=== PATIENT | female | born 1955 | race Caucasian/White ===

== ENCOUNTER 2017-12-06 16:38 | Observation (INO) | payer BC ==
[~2017-12-06] VITALS: Ht 170.2 cm; Wt 96.7 kg
[~2017-12-06 16:38] MED LIST: DTRSR10 PO
--- NOTE | 2017-12-06 16:46 | EMERGENCY ROOM VISIT NOTE ---
History Report prepared by Law: Rajat Phealn Under the Supervision of: Dr. Jr Villafana M.D. First contact with patient: 16:44 Chief Complaint: CHEST PAIN Stated Complaint: CHEST PAIN, CAN'T MOVE L ARM History of Present Illness The patient is a 62 year old female who presents to the Emergency Room with complaints of squeezing, waxing and waning left sided chest pain beginning 25 minutes ago. She rates the severity of the squeezing sensation at an 8/10. The patient notes that the squeezing sensation recurs every 2 minutes and lasts for roughly 5 seconds at a time. She reports that on the way to the ED, the pain developed into a constant aching sensation. The patient notes experiencing soreness in her left shoulder for the past two days which now radiates up to her neck. The patient states that she had bronchitis 2 weeks ago, but still feels short of breath. She reports that she is a diabetic, but does not currently take any medications to regulate her sugars. The patient states that she takes medication for her thyroid and cholesterol. The patient denies any recent travel, history of blood clots, history of cancer, smoking, or drug use. The patient notes difficulty breathing at night which is alleviated by sleeping on 3 pillows. She reports taking a baby aspirin every night. Source of History: patient Onset: 25 minutes ago Position: chest (left) Symptom Intensity: 8/10 Quality: other (squeezing) Timing: waxes/wanes Associated Symptoms: + SOB Note: Associated Symptoms: Left shoulder soreness, orthopnea Review of Systems See HPI for pertinent positives and negatives. A total of ten systems were reviewed and were otherwise negative. Past Medical & Surgical Medical Problems: (1) Chest pain Family History FH: diabetes mellitus Social History Smoking Status: Never Smoker Smokeless Tobacco Use: No Alcohol Use: occasionally Drug Use: none Housing Status: lives with family Occupation Status: employed Current/Historical Medications Scheduled Aspirin (Aspirin Ec), 81 MG PO DAILY [Cholesterol Med], 1 TAB PO QAM [Thyroid Med], 1 TAB PO HS Allergies Coded Allergies: No Known Allergies (Unverified , 12/06/17) Physical Exam Vital Signs Date Time Temp Pulse Resp B/P (MAP) Pulse Ox O2 Delivery O2 Flow Rate FiO2 12/06/17 17:13 100 Room Air 12/06/17 17:13 100 Room Air 12/06/17 17:08 98 20 155/90 92 Room Air 12/06/17 16:57 106 12/06/17 16:53 100 Room Air 12/06/17 16:50 111 19 143/111 95 Room Air 12/06/17 16:40 36.8 111 20 160/82 97 Room Air Physical Exam Physical Exam GENERAL: She is oriented to person, place, and time. She appears well- developed and well-nourished. She does not appear distressed. ____ HENT: Exam performed. Head: Normocephalic and atraumatic. Right Ear: External ear normal. No mastoid tenderness. Left Ear: External ear normal. No mastoid tenderness. Mouth/Throat: The oropharynx is clear and moist. No trismus in the jaw. No dental abscesses or uvula swelling. No oropharyngeal exudate or tonsillar abscesses. ____ EYES: Conjunctivae and EOM are normal. Pupils are equal, round, and reactive to light. Right eye exhibits no discharge. Left eye exhibits no discharge. No scleral icterus. ____ NECK: Normal range of motion. Neck supple. No JVD present. No spinous process tenderness present. No carotid bruit present. No rigidity. No tracheal deviation and normal range of motion present. No Brudzinski's sign and no Kernig 's sign noted. ____ CV: Normal rate, regular rhythm, normal heart sounds and intact distal pulses. There is no peripheral edema. Palpable radial pulses bue. ____ PULM/CHEST: Effort normal and breath sounds normal. No respiratory distress. No stridor. She has no wheezes. She has no rales. Chest Wall: She exhibits no tenderness. ____ ABD: The abdomen is soft. Bowel sounds are normal. She has no distension. No mass is present. There is no tenderness. There is no rebound, no guarding, no Szymanski's sign and no tenderness at McBurney's point. Rovsig negative MUSC/SKEL: Normal range of motion. There is no peripheral edema, tenderness or deformity. LYMPH: No cervical adenopathy. ____ NEURO: She is alert and oriented to person, place, and time. She has normal strength. No cranial nerve deficit or sensory deficit. Coordination and gait normal. GCS eye subscore is 4. GCS verbal subscore is 5. GCS motor subscore is 6. Cerebellar tests wnl. ____ SKIN: Skin is warm and dry. She is not diaphoretic. ____ PSYCH: She has a normal mood and affect. Her behavior is normal. Judgment and thought content normal. ____ Medical Decision & Procedures ER Provider Diagnostic Interpretation: Radiology results as stated below per my review and radiologist interpretation: CHEST 2 VIEWS ROUTINE CLINICAL HISTORY: Atypical chest pain COMPARISON STUDY: 12/15/2009 FINDINGS: The cardiac and mediastinal contours are normal. There is no evidence of focal pulmonary consolidation. There is no evidence of failure. No pleural effusions are visualized.[ IMPRESSION: No active disease in the chest. Electronically signed by: Harvinder Bahena M.D. 12/06/2017 5:59 PM Dictated Date/Time: 12/06/2017 5:59 PM Laboratory Results 12/06/17 17:02 Red Blood Count 4.52, Mean Corpuscular Volume 90.7, Mean Corpuscular Hemoglobin 31.9, Mean Corpuscular Hemoglobin Concent 35.1, Mean Platelet Volume 9.3, Neutrophils (%) (Auto) 58.3, Lymphocytes (%) (Auto) 30.9, Monocytes (%) (Auto) 7.1, Eosinophils (%) (Auto) 3.0, Basophils (%) (Auto) 0.4, Neutrophils # (Auto) 4.25, Lymphocytes # (Auto) 2.25, Monocytes # (Auto) 0.52, Eosinophils # (Auto) 0.22, Basophils # (Auto) 0.03 12/06/17 17:02 Test 12/06/17 17:02 12/06/17 17:15 White Blood Count 7.29 K/uL (4.8-10.8) Red Blood Count 4.52 M/uL (4.2-5.4) Hemoglobin 14.4 g/dL (12.0-16.0) Hematocrit 41.0 % (37-47) Mean Corpuscular Volume 90.7 fL (80-100) Mean Corpuscular Hemoglobin 31.9 pg (25-34) Mean Corpuscular Hemoglobin Concent 35.1 g/dl (32-36) Platelet Count 348 K/uL (130-400) Mean Platelet Volume 9.3 fL (7.4-10.4) Neutrophils (%) (Auto) 58.3 % Lymphocytes (%) (Auto) 30.9 % Monocytes (%) (Auto) 7.1 % Eosinophils (%) (Auto) 3.0 % Basophils (%) (Auto) 0.4 % Neutrophils # (Auto) 4.25 K/uL (1.4-6.5) Lymphocytes # (Auto) 2.25 K/uL (1.2-3.4) Monocytes # (Auto) 0.52 K/uL (0.11-0.59) Eosinophils # (Auto) 0.22 K/uL (0-0.5) Basophils # (Auto) 0.03 K/uL (0-0.2) RDW Standard Deviation 41.9 fL (36.4-46.3) RDW Coefficient of Variation 12.7 % (11.5-14.5) Immature Granulocyte % (Auto) 0.3 % Immature Granulocyte # (Auto) 0.02 K/uL (0.00-0.02) Prothrombin Time 10.1 SECONDS (9.0-12.0) Prothromb Time International Ratio 1.0 (0.9-1.1) Activated Partial Thromboplast Time 26.8 SECONDS (21.0-31.0) Partial Thromboplastin Ratio 1.0 D-Dimer < 190 ug/L FEU (0-500) Anion Gap 9.0 mmol/L (3-11) Est Creatinine Clear Calc Drug Dose 89.1 ml/min Estimated GFR () 93.8 Estimated GFR (Non- 80.9 BUN/Creatinine Ratio 11.6 (10-20) Calcium Level 8.6 mg/dl (8.5-10.1) Troponin I < 0.015 ng/ml (0-0.045) Pro-B-Type Natriuretic Peptide 56 pg/ml (0-900) Influenza Type A Antigen Neg for Influ A (NEG) Influenza Type B Antigen Neg for Influ B (NEG) Laboratory results reviewed by me Medications Administered Medications (Trade) Dose Ordered Sig/Kristina Route Start Time Stop Time Status Last Admin Dose Admin Aspirin (Aspirin Chew) 324 mg NOW STAT PO 12/06/17 16:53 12/06/17 16:57 DC 12/06/17 17:10 324 MG Sodium Chloride 1,000 ml @ 999 mls/hr Q1H1M STAT IV 12/06/17 16:53 12/06/17 17:53 DC 12/06/17 16:53 999 MLS/HR Nitroglycerin (Nitrostat Tab) 0.4 mg Q5M PRN SL 12/06/17 17:00 12/06/17 19:42 DC 12/06/17 17:10 0.4 MG ECG Per My Interpretation Indication: chest pain Rate (beats per minute): 104 Rhythm: sinus tachycardia Findings: other (pr, qrs, and qtc intervals within normal limits. No ST elevation or depression.) Change: no significant change Change: Repeat EKG shows sinus tachycardia rate 102. Pr, qrs, and qtc intervals within normal limits. No ST elevation or depression. ED Course 164: The patient was evaluated in room B11. A complete history and physical exam was performed. 165: Ordered Sodium Chloride 1000 ml @ 999 mls/hr IV, and Aspirin 324 mg PO. 170: Ordered Nitroglycerin 0.4mg SL. 1812: I re-evaluated the patient. Her vital signs are stable. Labs including d dimer, troponin, proBNP are negative. The patient continues to report chest enamorado. Given the patients age and the fact that her father had an DE that required a CABG at the age of 64, she will be placed in the hospital to rule out ACS. [facility]. The patient states that she has never seen a insurance sales specialist or had a cardiology workup. I discussed the patient's case with Dr. Megan Marina, he will evaluate the patient for further treatment and care. Medical Decision vital signs are stable. Labs including d dimer, troponin, proBNP are negative. The patient continues to report chest enamorado. Given the patients age and the fact that her father had an DE that required a CABG at the age of 64, she will be placed in the hospital to rule out ACS. [facility]. The patient states that she has never seen a insurance sales specialist or had a cardiology workup. I discussed the patient's case with Dr. Megan Marina , he will evaluate the patient for further treatment and care. Medication Reconcilliation Current Medication List: was personally reviewed by me Blood Pressure Screening Patient's blood pressure: Elevated blood pressure Blood pressure disposition: Referred to PCP Consults Time Called: 1819 Consulting Physician: Dr. Megan Marina Returned Call: 1825 I discussed the patient's case with Dr. Megan Marina, he will evaluate the patient for further treatment and care. Impression Primary Impression: Chest pain, unspecified Scribe Attestation The scribe's documentation has been prepared under my direction and personally reviewed by me in its entirety. I confirm that the note above accurately reflects all work, treatment, procedures, and medical decision making performed by me. The chart was completed utilizing [employer] Speech voice recognition software. Grammatical errors, random word insertions, pronoun errors, and incomplete sentences are an occasional consequence of this system due to software limitations, ambient noise, and hardware issues. Any formal questions or concerns about the content, text, or information contained within the body of this dictation should be directly addressed to the physician for clarification. Departure Information Dispostion Being Evaluated By Surgeon Referrals No Doctor, Assigned (PCP) Patient Instructions My [facility] Problem Qualifiers Primary Impression: Chest pain, unspecified Chest pain type: unspecified Qualified Codes: R07.9 - Chest pain, unspecified
[2017-12-06] MEDS ORDERED: ASPIRIN 81 MG CHEW PO STA (16:53)
[2017-12-06] MEDS ORDERED: SODIUM CHLORIDE 0.9% 1000ML 1,000 ML IV STA (16:53)
[2017-12-06] MEDS ORDERED: NITROGLYCERIN 0.4 MG SL PER TAB CHARGE SL PRN ×2 (17:00→19:45)
[2017-12-06] MEDS ORDERED: ASPI81TA28 PO (17:09)
[2017-12-06] MEDS ORDERED: THYROID MED PO (17:09)
[2017-12-06] MEDS ORDERED: CHOLESTEROL MED PO (17:09)
[2017-12-06 17:13] LABS: BASO % 0.4 %; HEMOGLOBIN 14.4 g/dL (12.0-16.0); LYMPH % 30.9 %; MEAN CELL VOLUME 90.7 fL (80-100); MEAN CORPUSCULAR HEMOGLOBIN 31.9 pg (25-34); MEAN CORPUSCULAR HGB CONC 35.1 g/dl (32-36); MEAN PLATELET VOLUME 9.3 fL (7.4-10.4); MONO % 7.1 %; NEUT % 58.3 %; PLATELET COUNT 348 K/uL (130-400); RED CELL DISTRIBUTION WIDTH CV 12.7 % (11.5-14.5); RED CELL DISTRIBUTION WIDTH SD 41.9 fL (36.4-46.3); WHITE BLOOD COUNT 7.29 K/uL (4.8-10.8)
[2017-12-06 17:14] LABS: BASO ABS # 0.03 K/uL (0-0.2); EOS ABS # 0.22 K/uL (0-0.5); IG# 0.02 K/uL (0.00-0.02); LYMPH ABS # 2.25 K/uL (1.2-3.4); MONO ABS # 0.52 K/uL (0.11-0.59); NEUT ABS # 4.25 K/uL (1.4-6.5)
[2017-12-06 17:25] LABS: PTT PATIENT 26.8 SECONDS (21.0-31.0)
[2017-12-06 17:31] LABS: BLOOD UREA NITROGEN 9 mg/dl (7-18); CALCIUM 8.6 mg/dl (8.5-10.1); CARBON DIOXIDE 23 mmol/L (21-32); CREATININE 0.78 mg/dl (0.60-1.20); GLUCOSE 142 mg/dl (70-99); POTASSIUM 3.9 mmol/L (3.5-5.1); SODIUM 139 mmol/L (136-145)
[2017-12-06 17:54] LABS: INFLUENZA B ANTIGEN Neg for Influ B (NEG)
--- NOTE | 2017-12-06 18:00 | DIAGNOSTIC IMAGING REPORT ---
CHEST 2 VIEWS ROUTINE CLINICAL HISTORY: Atypical chest pain COMPARISON STUDY: 12/15/2009 FINDINGS: The cardiac and mediastinal contours are normal. There is no evidence of focal pulmonary consolidation. There is no evidence of failure. No pleural effusions are visualized.[ IMPRESSION: No active disease in the chest. Electronically signed by: Harvinder Bahena M.D. 12/06/2017 5:59 PM Dictated Date/Time: 12/06/2017 5:59 PM
[2017-12-06] MEDS ORDERED: ONDANSETRON INJ 2 MG/ML 2 ML VIAL IV PRN (19:45)
[2017-12-06] MEDS ORDERED: ACETAMINOPHEN 325 MG TAB PO PRN (19:45)
[2017-12-06] MEDS ORDERED: IV FLUIDS COMPLETED PRN (20:00)
[2017-12-06 20:15] VITALS: BP 134/78; PULSE 92; TEMP 36.7; O2SAT 92; Ht 170.2 cm; Wt 96.7 kg
--- NOTE | 2017-12-06 20:15 | History and Physical ---
History & Physical Date & Time of Service: Dec 06, 2017 at 20:06 Chief Complaint: Chest Pain Primary Care Physician: Asha Taylor D.O. History of Present Illness Source: patient, spouse 62-year-old female with history of hypothyroidism and dyslipidemia presented with chest pain around 5 PM. Patient was apparently doing okay until around 5 PM, While watching TV, patient had a sudden onset of left-sided chest pain described as pressure radiating to the left jaw, Associated with some shortness of breath, but no nausea, diaphoresis. The pain persisted prompting consult to the ER. At the ER, blood pressure was 160/80. EKG no signs of acute ischemia Troponin negative D-dimer negative Patient was given aspirin and nitroglycerin sublingual after which patient reports improvement of chest pain from 8 out of 10 to 2 out of 10. On exam, patient was sitting up in bed comfortable. She rates her left-sided chest pain is 2 out of 10 denies other associated symptoms. Treatment having left shoulder pain for the past 2 days but reports the chest pain is distinct. Also has been treated for bronchitis and has finished a course of prednisone and antibiotics last. Bronchitis symptoms have already improved. Past Medical/Surgical History Medical Problems: (1) Chest pain Family History FH: diabetes mellitus Positive for coronary artery disease and DE father at the age of 80s Social History Smoking Status: Never Smoker Smokeless Tobacco Use: No Alcohol Use: none Drug Use: none Marital Status: Housing status: lives with family Occupational Status: employed Allergies Coded Allergies: No Known Allergies (Unverified , 12/06/17) Home Medications Scheduled Aspirin (Aspirin Ec), 81 MG PO DAILY [Cholesterol Med], 1 TAB PO QAM [Thyroid Med], 1 TAB PO HS Review of Systems Constitutional- no fever; no weight loss Eyes- no acute visual changes ENT- no sinus drainage; no pharyngitis Pulmonary- no cough, no wheezing, no shortness of breath Cardiac-positive as noted above GI- no nausea, no vomiting, no diarrhea, no melena, no hematochezia - no dysuria, no hematuria Musculoskeletal-positive as noted above Derm- no rashes, no new skin lesions, no changing skin lesions Hematologic- no unusual bruising, no unusual bleeding Lymphatics- no adenopathy Endocrine- no polyuria or polydipsia; no heat or cold intolerance Neuro- no headaches, no focal neurologic symptoms Psych- no anxiety, no depression Physical Exam Vital Signs Date Time Temp Pulse Resp B/P (MAP) Pulse Ox O2 Delivery O2 Flow Rate FiO2 12/06/17 19:23 97 18 144/101 92 12/06/17 18:39 97 17 161/77 96 Room Air 12/06/17 17:13 100 Room Air 12/06/17 17:13 100 Room Air 12/06/17 17:08 98 20 155/90 92 Room Air 12/06/17 16:57 106 12/06/17 16:53 100 Room Air 12/06/17 16:50 111 19 143/111 95 Room Air 12/06/17 16:40 36.8 111 20 160/82 97 Room Air General Appearance: WD/WN, no apparent distress Head: normocephalic, atraumatic Eyes: normal inspection, PERRL, EOMI, sclerae normal ENT: normal ENT inspection, hearing grossly normal, pharynx normal Neck: supple, no adenopathy, thyroid normal, no JVD, trachea midline Respiratory/Chest: chest non-tender, lungs clear, normal breath sounds, no respiratory distress, no accessory muscle use, + pertinent finding (No chest wall tenderness on palpation) Cardiovascular: regular rate, rhythm, no edema, no JVD, no murmur, normal peripheral pulses Abdomen/GI: normal bowel sounds, non tender, soft, no organomegaly Back: normal inspection, no CVA tenderness Extremities/Musculoskelatal: normal inspection, no calf tenderness, no pedal edema, normal range of motion, non-tender Neurologic/Psych: worm packer II-XII nml as tested, no motor/sensory deficits, alert, normal mood/affect, normal reflexes, oriented x 3 Skin: normal color, warm/dry, no rash Lymphatic: no adenopathy Diagnostics Laboratory Results Results Past 24 Hours Test 12/06/17 17:02 12/06/17 17:15 Range/Units White Blood Count 7.29 4.8-10.8 K/uL Red Blood Count 4.52 4.2-5.4 M/uL Hemoglobin 14.4 12.0-16.0 g/dL Hematocrit 41.0 37-47 % Mean Corpuscular Volume 90.7 80-100 fL Mean Corpuscular Hemoglobin 31.9 25-34 pg Mean Corpuscular Hemoglobin Concent 35.1 32-36 g/dl Platelet Count 348 130-400 K/uL Mean Platelet Volume 9.3 7.4-10.4 fL Neutrophils (%) (Auto) 58.3 % Lymphocytes (%) (Auto) 30.9 % Monocytes (%) (Auto) 7.1 % Eosinophils (%) (Auto) 3.0 % Basophils (%) (Auto) 0.4 % Neutrophils # (Auto) 4.25 1.4-6.5 K/uL Lymphocytes # (Auto) 2.25 1.2-3.4 K/uL Monocytes # (Auto) 0.52 0.11-0.59 K/uL Eosinophils # (Auto) 0.22 0-0.5 K/uL Basophils # (Auto) 0.03 0-0.2 K/uL RDW Standard Deviation 41.9 36.4-46.3 fL RDW Coefficient of Variation 12.7 11.5-14.5 % Immature Granulocyte % (Auto) 0.3 % Immature Granulocyte # (Auto) 0.02 0.00-0.02 K/uL Prothrombin Time 10.1 9.0-12.0 SECONDS Prothromb Time International Ratio 1.0 0.9-1.1 Activated Partial Thromboplast Time 26.8 21.0-31.0 SECONDS Partial Thromboplastin Ratio 1.0 D-Dimer < 190 0-500 ug/L FEU Sodium Level 139 136-145 mmol/L Potassium Level 3.9 3.5-5.1 mmol/L Chloride Level 107 98-107 mmol/L Carbon Dioxide Level 23 21-32 mmol/L Anion Gap 9.0 3-11 mmol/L Blood Urea Nitrogen 9 7-18 mg/dl Creatinine 0.78 0.60-1.20 mg/dl Est Creatinine Clear Calc Drug Dose 89.1 ml/min Estimated GFR () 93.8 Estimated GFR (Non- 80.9 BUN/Creatinine Ratio 11.6 10-20 Random Glucose 142 70-99 mg/dl Calcium Level 8.6 8.5-10.1 mg/dl Troponin I < 0.015 0-0.045 ng/ml Pro-B-Type Natriuretic Peptide 56 0-900 pg/ml Influenza Type A Antigen Neg for Influ A NEG Influenza Type B Antigen Neg for Influ B NEG Diagnostic Radiology Chest x-ray: No acute process EKG Heart rate 102, sinus rhythm, no signs of acute ischemia or infarct Impression Assessment and Plan 62-year-old female with history of hypothyroidism and dyslipidemia presented with chest pain around 5 PM. CHEST PAIN RULE OUT ACUTE CORONARY SYNDROME Risk factor: Family history of DE/CAD father Follow 2 more sets of troponins Echocardiogram ordered Start nitroglycerin paste Continue aspirin 81 mg daily Continue Lipitor 40 mg daily will consult cardiology HISTORY HISTORY OF DIABETES Not on any medications at this time Check A1c HYPOTHYROIDISM Check TSH Continue levothyroxine 75 mcg daily DYSLIPIDEMIA Check lipid profile Continue Lipitor 40 mg daily DVT prophylaxis SCDs for now Disposition Lives with Anticipate discharge home when medically stable and cleared by cardiology Resuscitation Status VTE Prophylaxis Will order VTE Prophylaxis: Yes
[2017-12-06] MEDS: NITROGLYCERIN 2% OINTMENT 30GM TUBE EXT SCH (21:45)
[2017-12-07] MEDS ORDERED: SODIUM CHLORIDE 0.9% 1000ML 1,000 ML IV SCH (00:01)
[2017-12-07 00:19] VITALS: BP 102/73; PULSE 101; TEMP 36.8; O2SAT 96
[2017-12-07] MEDS: NITROGLYCERIN 2% OINTMENT 30GM TUBE EXT SCH ×2 (03:27→07:42)
[2017-12-07 04:32] VITALS: BP 112/57; PULSE 83; TEMP 36.9; O2SAT 95
[2017-12-07 04:56] LABS: BASO % 0.4 %; BASO ABS # 0.03 K/uL (0-0.2); EOS % 2.4 %; EOS ABS # 0.16 K/uL (0-0.5); HEMATOCRIT 36.2 % (37-47); IG# 0.01 K/uL (0.00-0.02); LYMPH % 31.4 %; LYMPH ABS # 2.13 K/uL (1.2-3.4); MEAN CELL VOLUME 93.1 fL (80-100); MEAN CORPUSCULAR HEMOGLOBIN 30.8 pg (25-34); MEAN CORPUSCULAR HGB CONC 33.1 g/dl (32-36); MEAN PLATELET VOLUME 9.4 fL (7.4-10.4); MONO % 7.8 %; MONO ABS # 0.53 K/uL (0.11-0.59); NEUT % 57.9 %; NEUT ABS # 3.92 K/uL (1.4-6.5); PLATELET COUNT 272 K/uL (130-400); RED CELL DISTRIBUTION WIDTH CV 12.8 % (11.5-14.5); WHITE BLOOD COUNT 6.78 K/uL (4.8-10.8)
[2017-12-07 05:17] LABS: BLOOD UREA NITROGEN 10 mg/dl (7-18); CALCIUM 8.3 mg/dl (8.5-10.1); CARBON DIOXIDE 27 mmol/L (21-32); GLUCOSE 148 mg/dl (70-99); POTASSIUM 4.8 mmol/L (3.5-5.1); SODIUM 145 mmol/L (136-145)
[2017-12-07 05:32] LABS: CHOLESTEROL 125 mg/dl (0-200); LDL CHOLESTEROL CALCULATED 55 mg/dl
[2017-12-07] MEDS ORDERED: LEVOTHYROXINE 75 MCG TAB PO SCH (06:30)
[2017-12-07 06:54] LABS: HEMOGLOBIN A1C 6.7 % (4.5-5.6)
[2017-12-07 07:24] VITALS: BP 135/83; PULSE 87; TEMP 36.5; O2SAT 97
[2017-12-07] MEDS ORDERED: ENOXAPARIN 40 MG/0.4 ML SYR SQ SCH (09:00)
[2017-12-07] MEDS ORDERED: ATORVASTATIN 40 MG TAB PO SCH (09:00)
[2017-12-07] MEDS ORDERED: ASPIRIN 81 MG ECTAB PO SCH (09:00)
[2017-12-07 11:25] VITALS: BP 136/84; PULSE 82; TEMP 36.9; O2SAT 94
[2017-12-07] MEDS ORDERED: DOBUTamine HCL 12.5 MG/ML 20 ML VIAL ONE (11:34)
[2017-12-07] MEDS ORDERED: ATROPINE SULFATE 0.1 MG/ML 5ML SYR ONE ×2 (11:34→11:35)
[2017-12-07] MEDS ORDERED: METOPROLOL TARTRATE 1 MG/ML VIAL ONE ×2 (11:34)
--- NOTE | 2017-12-07 12:27 | Cardiology Consultation ---
Cardiology Consultation Date of Consultation: Dec 07, 2017 Requesting Physician: Dr. Mcdonald Attending Geriatrics Physician: Dr. Leroy (Hafsa Wei PA-C) History of Present Illness Patient is a 62 year old female with history of hypertension, dyslipidemia, obesity, DM controlled with diet. No prior history of cardiovascular disease. She reports normal stress test in 2009. No history of Mi, CHF, arrhythmia or valvular disease. yesterday evening patient was watching TV and developed substernal chest pain, radiating to left side of her chest and into her neck. Described as a squeezing sensation. Lasted bout 15 minutes and did not resolve so she came to ER for evaluation. In ER symptoms mildly improved wiht SL nitro and then resolved wiht nitro patch. No recurrence since admission. Cardiac enzymes unremarkable. EKG without ischemic changes. she reports similar pain awakening her from sleep several times over the last few months. Symptoms resolved within a few minutes. No exertional chest pain or dyspnea. No orthopnea, PND or edema. No palpitations or tachypalpitations. At time of consult, patient feeling well. No current symptoms. Denies chest pain this morning. No SOB. No dizziness, palpitations. (Hafsa Wei PA-C) Past Medical/Surgical History Problem List: Medical Problems: 1. hypertension 2. dyslipidemia 3. hypothyroidism 4. obesity 5. DM controlled wiht diet. (Hafsa Wei PA-C) Family History FH: diabetes mellitus (Hafsa Wei PA-C) FH: diabetes mellitus (Artur Leroy, ) Social History Smoking Status: Never Smoker Smokeless Tobacco Use: No Alcohol Use: none Drug Use: none Marital Status: Housing Status: lives with family Occupation: employed (Hafsa Wei PA-C) Review Of Systems General: The patient denies weight change, night sweats, fever, chills. Head: The patient denies headache and prior head trauma. Cardiovascular: The patient denies chest pain or chest discomfort, dyspnea on exertion, palpitations, PND, orthopnea, edema, spontaneous shortness of breath, syncope and near syncope. Pulmonary: The patient denies cough, wheeze, pleurisy, hemoptysis, sputum, and excessive snoring. Gastrointestinal: The patient denies nausea, vomiting, diarrhea, constipation, bloating, hematemesis, hematochezia, and abdominal pain. Skin: The patient denies diaphoresis and rash. Musculoskeletal: The patient denies joint pain, joint swelling, myalgia, back pain, neck pain and prior injuries. Neurological: The patient denies prior stroke and seizures (Hafsa Wei PA-C) Allergies Coded Allergies: No Known Allergies (Unverified , 12/06/17) Medications Reported Home Medications Medications Dose Route/Sig Max Daily Dose Days Date Category [Cholesterol Med] 1 Tab PO QAM 12/06/17 Reported [Thyroid Med] 1 Tab PO HS 12/06/17 Reported Aspirin Ec (Aspirin) 81 Mg Tab 81 Mg PO DAILY 12/06/17 Reported (Hafsa Wei PA-C) Physical Exam Vital Signs (Last 8hrs): Last 8 Hrs Date Time Temp Pulse Resp B/P (MAP) Pulse Ox O2 Delivery O2 Flow Rate FiO2 12/07/17 11:25 36.9 82 16 136/84 (101) 94 12/07/17 08:00 Room Air 12/07/17 07:24 36.5 87 16 135/83 (100) 97 Room Air 12/07/17 04:32 36.9 83 20 112/57 (75) 95 Room Air General Appearance: Alert and Oriented x3. NAD. Head: Normocephalic Atraumatic. Eyes: PERRLA, EOMI, conjunctiva and sclera clear Neck: Supple. No carotid bruits noted. No JVD. No HJD. Respiratory: Breath sounds clear to auscultation bilaterally. No w/r/r. Cardiovascular: Reg rate and rhythm. S1 and S2 noted. No murmurs, rubs, gallops. PMI non displace. Abdomen: Normal bowel sounds, soft nontender. no abdominal bruits. Extremities: No edema, no clubbing or cyanosis. distal pulses 2/4 bilaterally. Neuro: No focal deficits. Psychiatric: Normal affect. (Hafsa Wei PA-C) Data Last 24 Hours Test 12/06/17 17:02 12/06/17 17:15 12/06/17 22:40 12/07/17 04:45 White Blood Count 7.29 K/uL 6.78 K/uL Red Blood Count 4.52 M/uL 3.89 M/uL Hemoglobin 14.4 g/dL 12.0 g/dL Hematocrit 41.0 % 36.2 % Mean Corpuscular Volume 90.7 fL 93.1 fL Mean Corpuscular Hemoglobin 31.9 pg 30.8 pg Mean Corpuscular Hemoglobin Concent 35.1 g/dl 33.1 g/dl Platelet Count 348 K/uL 272 K/uL Mean Platelet Volume 9.3 fL 9.4 fL Neutrophils (%) (Auto) 58.3 % 57.9 % Lymphocytes (%) (Auto) 30.9 % 31.4 % Monocytes (%) (Auto) 7.1 % 7.8 % Eosinophils (%) (Auto) 3.0 % 2.4 % Basophils (%) (Auto) 0.4 % 0.4 % Neutrophils # (Auto) 4.25 K/uL 3.92 K/uL Lymphocytes # (Auto) 2.25 K/uL 2.13 K/uL Monocytes # (Auto) 0.52 K/uL 0.53 K/uL Eosinophils # (Auto) 0.22 K/uL 0.16 K/uL Basophils # (Auto) 0.03 K/uL 0.03 K/uL RDW Standard Deviation 41.9 fL 43.0 fL RDW Coefficient of Variation 12.7 % 12.8 % Immature Granulocyte % (Auto) 0.3 % 0.1 % Immature Granulocyte # (Auto) 0.02 K/uL 0.01 K/uL Prothrombin Time 10.1 SECONDS Prothromb Time International Ratio 1.0 Activated Partial Thromboplast Time 26.8 SECONDS Partial Thromboplastin Ratio 1.0 D-Dimer < 190 ug/L FEU Sodium Level 139 mmol/L 145 mmol/L Potassium Level 3.9 mmol/L 4.8 mmol/L Chloride Level 107 mmol/L 113 mmol/L Carbon Dioxide Level 23 mmol/L 27 mmol/L Anion Gap 9.0 mmol/L 5.0 mmol/L Blood Urea Nitrogen 9 mg/dl 10 mg/dl Creatinine 0.78 mg/dl 0.80 mg/dl Est Creatinine Clear Calc Drug Dose 89.1 ml/min 86.9 ml/min Estimated GFR () 93.8 90.9 Estimated GFR (Non- 80.9 78.5 BUN/Creatinine Ratio 11.6 12.1 Random Glucose 142 mg/dl 148 mg/dl Calcium Level 8.6 mg/dl 8.3 mg/dl Troponin I < 0.015 ng/ml < 0.015 ng/ml < 0.015 ng/ml Pro-B-Type Natriuretic Peptide 56 pg/ml Influenza Type A Antigen Neg for Influ A Influenza Type B Antigen Neg for Influ B Estimated Average Glucose 146 mg/dl Hemoglobin A1c 6.7 % Triglycerides Level 192 mg/dl Cholesterol Level 125 mg/dl HDL Cholesterol 32 mg/dl LDL Cholesterol, Calculated 55 mg/dl VLDL Cholesterol, Calculated 38 mg/dl Cholesterol/HDL Ratio 3.9 Imaging: Chest xray - No active disease. EKG: On admission - Sinus tach with nonspecific ST/T wave abnormality in lateral leads. Unchanged from previous Telemetry reviewed: NSR and Sinus tach without sustained arrhythmias. (Hafsa Wei PA-C) Assessment & Plan 1. Atypical chest pain -occurs at rest x3 months -negative cardiac enzymes x3 -non specific ST/T wave abnormality in lateral leads, unchanged -cardiac risk factors include HTN, dyslipidemia, DM, obesity 2. Hypertension - controlled on home medications 3. cough - recent treatment for bronchitis with prednisone/steroids. Patient to have a dobutamine stress echo this AM to evaluate for underlying ischemia. Further recommendations pending review of stress test results. Discussed wiht Dr. Leroy (Hafsa Wei PA-C) CARDIOLOGY ATTENDING ADDENDUM: The patient was seen and personally examined. Agree with Hafsa Wei PA-C's findings and plans as documented above. I saw this patient in the stress lab. I reviewed her chart and performed an exam. Her dobutamine stress test went well and it was a negative study. I do not believe any additional cardiac testing is indicated at this time. (Artur Leroy, )
--- NOTE | 2017-12-07 13:35 | Progress Note ---
Medicine Progress Note Date & Time of Visit: Dec 07, 2017 at 13:28. Subjective Seen resting in bed comfortable Status post stress test dobutamine stress test Tolerated well Negative stress test Chest pain has resolved Denies shortness of breath, dizziness, headache, nausea Left shoulder pain resolved States she feels fine overall Ambulating with no problems States that she is ready and would like to be discharged today Objective Last 8 Hrs Date Time Temp Pulse Resp B/P (MAP) Pulse Ox O2 Delivery O2 Flow Rate FiO2 12/07/17 11:25 36.9 82 16 136/84 (101) 94 12/07/17 08:00 Room Air 12/07/17 07:24 36.5 87 16 135/83 (100) 97 Room Air Physical Exam: General-oriented 3, not in distress, speaking sentences no effort Eyes-anicteric Neck- supple, no JVD Lungs- clear breath sounds bilaterally Heart- regular rhythm; no murmur, breath sounds bilaterally normal rate single no gallop, no rub appreciated Abdomen- normal bowel sounds, soft, nontender Extremities- no pretibial edema, no calf tenderness; peripheral pulses intact Neuro- alert, oriented x 3; no gross focal neurologic deficits Skin- warm & dry Laboratory Results: Last 24 Hours Test 12/06/17 17:02 12/06/17 17:15 12/06/17 22:40 12/07/17 04:45 White Blood Count 7.29 K/uL 6.78 K/uL Red Blood Count 4.52 M/uL 3.89 M/uL Hemoglobin 14.4 g/dL 12.0 g/dL Hematocrit 41.0 % 36.2 % Mean Corpuscular Volume 90.7 fL 93.1 fL Mean Corpuscular Hemoglobin 31.9 pg 30.8 pg Mean Corpuscular Hemoglobin Concent 35.1 g/dl 33.1 g/dl Platelet Count 348 K/uL 272 K/uL Mean Platelet Volume 9.3 fL 9.4 fL Neutrophils (%) (Auto) 58.3 % 57.9 % Lymphocytes (%) (Auto) 30.9 % 31.4 % Monocytes (%) (Auto) 7.1 % 7.8 % Eosinophils (%) (Auto) 3.0 % 2.4 % Basophils (%) (Auto) 0.4 % 0.4 % Neutrophils # (Auto) 4.25 K/uL 3.92 K/uL Lymphocytes # (Auto) 2.25 K/uL 2.13 K/uL Monocytes # (Auto) 0.52 K/uL 0.53 K/uL Eosinophils # (Auto) 0.22 K/uL 0.16 K/uL Basophils # (Auto) 0.03 K/uL 0.03 K/uL RDW Standard Deviation 41.9 fL 43.0 fL RDW Coefficient of Variation 12.7 % 12.8 % Immature Granulocyte % (Auto) 0.3 % 0.1 % Immature Granulocyte # (Auto) 0.02 K/uL 0.01 K/uL Prothrombin Time 10.1 SECONDS Prothromb Time International Ratio 1.0 Activated Partial Thromboplast Time 26.8 SECONDS Partial Thromboplastin Ratio 1.0 D-Dimer < 190 ug/L FEU Sodium Level 139 mmol/L 145 mmol/L Potassium Level 3.9 mmol/L 4.8 mmol/L Chloride Level 107 mmol/L 113 mmol/L Carbon Dioxide Level 23 mmol/L 27 mmol/L Anion Gap 9.0 mmol/L 5.0 mmol/L Blood Urea Nitrogen 9 mg/dl 10 mg/dl Creatinine 0.78 mg/dl 0.80 mg/dl Est Creatinine Clear Calc Drug Dose 89.1 ml/min 86.9 ml/min Estimated GFR () 93.8 90.9 Estimated GFR (Non- 80.9 78.5 BUN/Creatinine Ratio 11.6 12.1 Random Glucose 142 mg/dl 148 mg/dl Calcium Level 8.6 mg/dl 8.3 mg/dl Troponin I < 0.015 ng/ml < 0.015 ng/ml < 0.015 ng/ml Pro-B-Type Natriuretic Peptide 56 pg/ml Influenza Type A Antigen Neg for Influ A Influenza Type B Antigen Neg for Influ B Estimated Average Glucose 146 mg/dl Hemoglobin A1c 6.7 % Triglycerides Level 192 mg/dl Cholesterol Level 125 mg/dl HDL Cholesterol 32 mg/dl LDL Cholesterol, Calculated 55 mg/dl VLDL Cholesterol, Calculated 38 mg/dl Cholesterol/HDL Ratio 3.9 Assessment & Plan 62-year-old female with history of hypothyroidism and dyslipidemia presented with chest pain around 5 PM. CHEST PAIN, ACUTE CORONARY SYNDROME RULED OUT LIKELY MUSCULOSKELETAL Risk factor: Family history of OK/CAD father Troponins 3 negative s/p Dobutamine Stress Test: Negative evaluated by Residential Program Coordinator Dr. Leroy/MARY CARMEN Wei no further cardiac testing necessary Continue aspirin 81 mg daily Continue Lipitor 40 mg daily HISTORY HISTORY OF DIABETES Not on any medications at this time A1c: 6.7 resume Metformin at 500mg po daily continue close outpatient monitoring HYPOTHYROIDISM Continue levothyroxine 75 mcg daily DYSLIPIDEMIA TG 192 LDL 55 Continue Lipitor 40 mg daily monitor Disposition d/c home ff up with PCP in 3-5 days Current Inpatient Medications: Current Inpatient Medications Medications (Trade) Dose Ordered Sig/Kristina Route Start Time Stop Time Status Last Admin Dose Admin Aspirin (Ecotrin Tab) 81 mg DAILY PO 12/07/17 09:00 01/06/18 08:59 12/07/17 07:41 81 MG Levothyroxine Sodium (Synthroid Tab) 75 mcg DAILYBB PO 12/07/17 06:30 01/06/18 06:29 Atorvastatin Calcium (Lipitor Tab) 40 mg QAM PO 12/07/17 09:00 01/06/18 08:59 12/07/17 07:41 40 MG Sodium Chloride 1,000 ml @ 60 mls/hr [id number] IV 12/07/17 00:01 01/06/18 00:00 12/07/17 03:27 60 MLS/HR Acetaminophen (Tylenol Tab) 650 mg Q4H PRN PO 12/06/17 19:45 01/05/18 19:44 12/07/17 04:01 650 MG Ondansetron HCl (Zofran Inj) 4 mg Q6H PRN IV 12/06/17 19:45 01/05/18 19:44 Nitroglycerin (Nitrostat Tab) 0.4 mg UD PRN SL 12/06/17 19:45 01/05/18 19:44 Miscellaneous (Iv Fluids Completed) 1 ea PRN PRN N/A 12/06/17 20:00 12/06/18 19:59 Nitroglycerin (Nitroglycerin 2% Oint) 0.5 inch Q6H EXT 12/06/17 20:15 01/05/18 20:14 12/07/17 03:27 0.5 INCH Enoxaparin Sodium (Lovenox Inj) 40 mg QAM SQ 12/07/17 09:00 01/06/18 08:59 12/07/17 07:43 40 MG
[2017-12-07] MEDS ORDERED: GLC/500 PO (13:44)
--- NOTE | 2017-12-07 13:51 | Discharge Instructions ---
Discharge Instructions Date of Service Dec 07, 2017. Admission Reason for Admission: Chest Pain Discharge Discharge Diagnosis / Problem: Chest pain, acute coronary syndrome ruled out Discharge Goals Goal(s): Diagnostic testing, Therapeutic intervention Activity Recommendations Activity Limitations: as noted below (Resume activity gradually as tolerated.) Lifting Limitations: until after follow-up appointment Exercise/Sports Limitations: until after follow-up appointment . Instructions / Follow-Up Instructions / Follow-Up PLEASE REVIEW YOUR NEW MEDICATION LIST AND FOLLOW INSTRUCTIONS CAREFULLY. CALL PRIMARY CARE PHYSICIAN OR RETURN TO ER IMMEDIATELY IF WITH RECURRENCE/ WORSENING OF SYMPTOMS. FOLLOW UP WITH DR. AMADOR ON Thursday12/11/17 AT 12:45AM. Current Hospital Diet Patient's current hospital diet: Diabetes Type 2 Diet, AHA Diet (Heart Healthy) Discharge Diet Recommended Diet: AHA Diet (Heart Healthy), Diabetes Type 2 Diet Procedures Procedures Performed: STRESS TEST Pending Studies Studies pending at discharge: no Laboratory Results Hemoglobin A1c Test 12/07/17 04:45 Range/Units Estimated Average Glucose 146 mg/dl Hemoglobin A1c 6.7 H 4.5-5.6 % Lipid Panel Test 12/07/17 04:45 Range/Units Triglycerides Level 192 H 0-150 mg/dl Cholesterol Level 125 0-200 mg/dl HDL Cholesterol 32 mg/dl Cholesterol/HDL Ratio 3.9 LDL Cholesterol, Calculated 55 mg/dl Medical Emergencies . Who to Call and When: Medical Emergencies: If at any time you feel your situation is an emergency, please call 911 immediately. . Non-Emergent Contact Non-Emergency issues call your: Primary Care Provider Call Non-Emergent contact if: you have a fever, your pain is not controlled, your pain is worsening, you have any medication questions . . "Provider Documentation" section prepared by Major Mcdonald. .
[2017-12-07 13:59] VITALS: BP 136/84; PULSE 82; TEMP 36.9; O2SAT 94
--- NOTE | 2017-12-07 15:46 | ECHOCARDIOGRAM REPORT ---
*NOTICE TO RECEIVING DEMOCRAT AGENCY This information is strictly Confidential and protected under [place] law. [place] law prohibits you from making any further disclosure of this information unless further disclosure is expressly permitted by the written consent of the person to whom it pertains or is authorized by law. A general authorization for the release of medical or other information is not sufficient for this purpose. Hospital accepts no responsibility if the information is made available to any other person, INCLUDING THE PATIENT. Interpretation Summary * Name: ALDO GEIGER Study Date: 12/07/2017 07:18 AM BP: 112/57 mmHg * Patient Location: .[facility]\S\N285\S\2 HR: 82 * : 1955 (M/d/yyyy) Gender: Female Height: 67 in * Age: 62 yrs Ethnicity: [place] Weight: 217 lb * Ordering Physician: Major Mcdonald * Referring Physician: Self, Referred * Performed By: Malou Kinney RDCS * * Reason For Study: Chest pain * BSA: 2.1 m2 * -- Conclusions -- * The left ventricle is normal in size. * Left ventricular systolic function is normal. * Ejection Fraction = 60-65%. * The right ventricular systolic function is normal as assessed by tricuspid annular plane systolic excursion (TAPSE) (normal >1.5 cm). * The left atrial size is normal. * Right atrial size is normal. * No significant valvular pathology. Procedure Details * A complete two-dimensional transthoracic echocardiogram was performed (2D, M-mode, Doppler and color flow Doppler). Left Ventricle * The left ventricle is normal in size. * There is normal left ventricular wall thickness. * Ejection Fraction = 60-65%. * Left ventricular systolic function is normal. * The left ventricular wall motion is normal. Right Ventricle * The right ventricle is normal size. * The right ventricular systolic function is normal as assessed by tricuspid annular plane systolic excursion (TAPSE) (normal >1.5 cm). Atria * The left atrial size is normal. * Right atrial size is normal. * There is no evidence of atrial septal defect, but resolution does not allow assessment for a patent foramen ovale. Mitral Valve * The mitral valve is normal. * There is no mitral valve stenosis. * Significant mitral regurgitation is absent. Tricuspid Valve * The tricuspid valve is normal. * There is no tricuspid stenosis. * Significant tricuspid regurgitation is absent. Aortic Valve * The aortic valve is trileaflet. * Aortic stenosis is absent. * There is no significant aortic regurgitation. Pulmonic Valve * The pulmonary valve is not well seen, but the Doppler examination is normal without significant regurgitation or stenosis. Great Vessels * The aortic root and proximal ascending aorta are normal sized. Pericardium/Pleural * There is no pericardial effusion. Great Vessels * Normal inferior vena cava diameter and respiratory variation suggests normal central venous pressure. MMode 2D Measurements and Calculations IVSd 0.98 cm LVIDd 4.3 cm LVIDs 2.9 cm LVPWd 1.2 cm IVS/LVPW 0.84 FS 31.6 % EDV(Teich) 81.7 ml ESV(Teich) 32.7 ml EF(Teich) 59.9 % EDV(cubed) 77.8 ml ESV(cubed) 24.9 ml EF(cubed) 68.0 % LV mass(C)d 157.4 grams LV mass(C)dI 75.2 grams/m\S\2 SV(Teich) 48.9 ml SI(Teich) 23.4 ml/m\S\2 SV(cubed) 52.9 ml SI(cubed) 25.3 ml/m\S\2 Ao root diam 2.9 cm Ao root area 6.7 cm\S\2 ACS 1.7 cm LA dimension 3.7 cm asc Aorta Diam 2.6 cm LA/Ao 1.3 LVOT diam 2.0 cm LVOT area 3.0 cm\S\2 LVAd ap4 23.0 cm\S\2 LVLd ap4 6.4 cm EDV(MOD-sp4) 68.1 ml EDV(sp4-el) 70.0 ml LVAs ap4 13.8 cm\S\2 LVLs ap4 5.7 cm ESV(MOD-sp4) 28.4 ml ESV(sp4-el) 28.1 ml EF(MOD-sp4) 58.3 % EF(sp4-el) 59.9 % LVAd ap2 24.1 cm\S\2 LVLd ap2 7.2 cm EDV(MOD-sp2) 66.6 ml EDV(sp2-el) 68.0 ml LVAs ap2 12.4 cm\S\2 LVLs ap2 5.4 cm ESV(MOD-sp2) 23.5 ml ESV(sp2-el) 24.1 ml EF(MOD-sp2) 64.7 % EF(sp2-el) 64.6 % LVLd %diff 11.5 % EDV(MOD-bp) 71.6 ml LVLs %diff -6.64 % ESV(MOD-bp) 26.2 ml EF(MOD-bp) 63.4 % SV(MOD-sp4) 39.7 ml SI(MOD-sp4) 19.0 ml/m\S\2 SV(MOD-sp2) 43.1 ml SI(MOD-sp2) 20.6 ml/m\S\2 SV(MOD-bp) 45.4 ml SI(MOD-bp) 21.7 ml/m\S\2 SV(sp4-el) 42.0 ml SI(sp4-el) 20.0 ml/m\S\2 SV(sp2-el) 43.9 ml SI(sp2-el) 21.0 ml/m\S\2 Doppler Measurements and Calculations MV E max steven 73.2 cm/sec MV A max steven 79.1 cm/sec MV E/A 0.93 MV dec time 0.20 sec Ao V2 max 111.3 cm/sec Ao max PG 5.0 mmHg Ao max PG (full) 2.3 mmHg ISIS(V,A) 2.2 cm\S\2 ISIS(V,D) 2.2 cm\S\2 LV V1 max PG 2.7 mmHg LV V1 max 82.0 cm/sec PA V2 max 81.4 cm/sec PA max PG 2.7 mmHg PA acc slope 425.5 cm/sec\S\2 PA acc time 0.16 sec PI max steven 111.3 cm/sec PI max PG 5.0 mmHg PI dec slope 155.6 cm/sec\S\2 PI P1/2t 209.6 msec TR max steven 194.8 cm/sec PA pr(Accel) 7.7 mmHg
--- NOTE | 2017-12-08 15:06 | Discharge Summary ---
Discharge Summary Date of Service Dec 08, 2017. Discharge Summary Admission Date: Dec 06, 2017 at 18:33 Discharge Date: Dec 07, 2017 Discharge Disposition: Home Principal Diagnosis: CHEST PAIN, ACUTE CORONARY SYNDROME RULED OUT LIKELY MUSCULOSKELETAL Secondary Diagnoses/Problems: PLEASE REFER TO HOSPITAL COURSE BELOW. Procedures: DOBUTAMINE STRESS TEST: NEGATIVE ECHO: * -- Conclusions -- * The left ventricle is normal in size. * Left ventricular systolic function is normal. * Ejection Fraction = 60-65%. * The right ventricular systolic function is normal as assessed by tricuspid annular plane systolic excursion (TAPSE) (normal >1.5 cm). * The left atrial size is normal. * Right atrial size is normal. * No significant valvular pathology. Consultations: CARDIOLOGY DR. LEROY Pending Studies/Follow-Up: Please refer to hospital course below. Medication Reconciliation New Medications: Metformin Hcl (Glucophage) 500 Mg Tab 500 MG PO DAILY for 30 Days, #30 TAB 2 Refills Continued Medications: Aspirin (Aspirin Ec) 81 Mg Tab 81 MG PO DAILY [Cholesterol Med] () 1 TAB PO QAM [Thyroid Med] () 1 TAB PO HS Admission Information HPI (per Admitting provider): 62-year-old female with history of hypothyroidism and dyslipidemia presented with chest pain around 5 PM. Patient was apparently doing okay until around 5 PM, While watching TV, patient had a sudden onset of left-sided chest pain described as pressure radiating to the left jaw, Associated with some shortness of breath, but no nausea, diaphoresis. The pain persisted prompting consult to the ER. At the ER, blood pressure was 160/80. EKG no signs of acute ischemia Troponin negative D-dimer negative Patient was given aspirin and nitroglycerin sublingual after which patient reports improvement of chest pain from 8 out of 10 to 2 out of 10. On exam, patient was sitting up in bed comfortable. She rates her left-sided chest pain is 2 out of 10 denies other associated symptoms. Treatment having left shoulder pain for the past 2 days but reports the chest pain is distinct. Also has been treated for bronchitis and has finished a course of prednisone and antibiotics last. Bronchitis symptoms have already improved. Physical Exam (per Admitting): General Appearance: WD/WN, no apparent distress Head: normocephalic, atraumatic Eyes: normal inspection, PERRL, EOMI, sclerae normal ENT: normal ENT inspection, hearing grossly normal, pharynx normal Neck: supple, no adenopathy, thyroid normal, no JVD, trachea midline Respiratory/Chest: chest non-tender, lungs clear, normal breath sounds, no respiratory distress, no accessory muscle use, + pertinent finding (No chest wall tenderness on palpation) Cardiovascular: regular rate, rhythm, no edema, no JVD, no murmur, normal peripheral pulses Abdomen/GI: normal bowel sounds, non tender, soft, no organomegaly Back: normal inspection, no CVA tenderness Extremities/Musculoskelatal: normal inspection, no calf tenderness, no pedal edema, normal range of motion, non-tender Neurologic/Psych: catia designer II-XII nml as tested, no motor/sensory deficits, alert , normal mood/affect, normal reflexes, oriented x 3 Skin: normal color, warm/dry, no rash Lymphatic: no adenopathy Hospital Course 62-year-old female with history of hypothyroidism and dyslipidemia presented with chest pain around 5 PM. CHEST PAIN, ACUTE CORONARY SYNDROME RULED OUT LIKELY MUSCULOSKELETAL Risk factor: Family history of IL/CAD father Troponins 3 negative d dimer negative s/p Dobutamine Stress Test: Negative Study evaluated by Informatics Physician Liaison Dr. Leroy/MARY CARMEN Wei no further cardiac testing necessary Continue aspirin 81 mg daily Continue Lipitor 40 mg daily HISTORY HISTORY OF DIABETES Not on any medications at this time A1c: 6.7 resume Metformin at 500mg po daily continue close outpatient monitoring HYPOTHYROIDISM Continue levothyroxine 75 mcg daily DYSLIPIDEMIA TG 192 LDL 55 Continue Lipitor 40 mg daily monitor Disposition d/c home ff up with PCP in 3-5 days Total time spent on discharge = This includes examination of the patient, discharge planning, medication reconciliation, and communication with other providers. Discharge Instructions Discharge Instructions Date of Service Dec 07, 2017. Admission Reason for Admission: Chest Pain Discharge Discharge Diagnosis / Problem: Chest pain, acute coronary syndrome ruled out Discharge Goals Goal(s): Diagnostic testing, Therapeutic intervention Activity Recommendations Activity Limitations: as noted below (Resume activity gradually as tolerated.) Lifting Limitations: until after follow-up appointment Exercise/Sports Limitations: until after follow-up appointment . Instructions / Follow-Up Instructions / Follow-Up PLEASE REVIEW YOUR NEW MEDICATION LIST AND FOLLOW INSTRUCTIONS CAREFULLY. CALL PRIMARY CARE PHYSICIAN OR RETURN TO ER IMMEDIATELY IF WITH RECURRENCE/ WORSENING OF SYMPTOMS. FOLLOW UP WITH DR. AMADOR ON Thursday12/11/17 AT 12:45AM. Current Hospital Diet Patient's current hospital diet: Diabetes Type 2 Diet, AHA Diet (Heart Healthy) Discharge Diet Recommended Diet: AHA Diet (Heart Healthy), Diabetes Type 2 Diet Procedures Procedures Performed: STRESS TEST Pending Studies Studies pending at discharge: no Laboratory Results Hemoglobin A1c Test 12/07/17 04:45 Range/Units Estimated Average Glucose 146 mg/dl Hemoglobin A1c 6.7 H 4.5-5.6 % Lipid Panel Test 12/07/17 04:45 Range/Units Triglycerides Level 192 H 0-150 mg/dl Cholesterol Level 125 0-200 mg/dl HDL Cholesterol 32 mg/dl Cholesterol/HDL Ratio 3.9 LDL Cholesterol, Calculated 55 mg/dl Medical Emergencies . Who to Call and When: Medical Emergencies: If at any time you feel your situation is an emergency, please call 911 immediately. . Non-Emergent Contact Non-Emergency issues call your: Primary Care Provider Call Non-Emergent contact if: you have a fever, your pain is not controlled, your pain is worsening, you have any medication questions . . "Provider Documentation" section prepared by Major Mcdonald. .
== END 2017-12-07 14:05 | disposition home or self-care (01) ==
LOC: C.EDB 16:40 → C.MED 18:33 → ENRESERV 19:03
PROVIDERS: ADMIT Internal Medicine; ATTEND Internal Medicine
DX: R07.9 Chest pain, unspecified (principal); I10 Essential (primary) hypertension; E11.9 Type 2 diabetes mellitus without complications; E66.9 Obesity, unspecified; E03.9 Hypothyroidism, unspecified; E78.5 Hyperlipidemia, unspecified; Z82.49 Family history of ischemic heart disease and other diseases of the circulatory system; Z83.3 Family history of diabetes mellitus; Z79.899 Other long term (current) drug therapy; Z79.82 Long term (current) use of aspirin